=== PATIENT | female | born 1935 | race Caucasian/White ===

== ENCOUNTER 2021-10-03 09:30 | Outpatient (CLI) | payer MEDICARE | END 2021-10-03 09:31 | disposition home or self-care (01) | LOC: PET 09:30 | PROVIDERS: ATTEND Internal Medicine Hematology & Oncology | DX: R59.0 Localized enlarged lymph nodes (principal); R16.1 Splenomegaly, not elsewhere classified; C83.85 Other non-follicular lymphoma, lymph nodes of inguinal region and lower limb; D50.0 Iron deficiency anemia secondary to blood loss (chronic); D69.59 Other secondary thrombocytopenia | CPT/HCPCS: 78815; A9552 ==

== ENCOUNTER → 2022-02-21 | Outpatient (CLI) | payer MEDICARE | LOC: PET 09:30 | PROVIDERS: ATTEND Internal Medicine Hematology & Oncology | DX: C83.07 Small cell B-cell lymphoma, spleen (principal) | CPT/HCPCS: 78815; A9552 ==

== ENCOUNTER 2023-01-27 11:00 | Outpatient (CLI) | payer MEDICARE | END 2023-01-27 11:01 | LOC: PET 11:00 | PROVIDERS: ATTEND Internal Medicine Hematology & Oncology | DX: C83.07 Small cell B-cell lymphoma, spleen (principal); C85.83 Other specified types of non-Hodgkin lymphoma, intra-abdominal lymph nodes | CPT/HCPCS: 78815; A9552 ==

== ENCOUNTER 2023-08-31 08:00 | Outpatient (CLI) | payer MEDICARE ==
[2023-08-31] MEDS ORDERED: Iopamidol 370 76% 100 ML VIAL ONE (10:17)
== END 2023-08-31 08:01 | disposition home or self-care (01) ==
LOC: CT 08:00
PROVIDERS: ATTEND Internal Medicine Hematology & Oncology
DX: C85.90 Non-Hodgkin lymphoma, unspecified, unspecified site (principal); R93.5 Abnormal findings on diagnostic imaging of other abdominal regions, including retroperitoneum; R16.0 Hepatomegaly, not elsewhere classified; R59.0 Localized enlarged lymph nodes
CPT/HCPCS: 74170; 82565